=== PATIENT | female | born 1960 | race Caucasian/White ===

== ENCOUNTER 2020-04-09 16:13 | Inpatient (IN) | payer MEDICAID, OTHER ==
[~2020-04-09] VITALS: Ht 157.5 cm; Wt 86.8 kg
[2020-04-09 16:25] VITALS: BP_SYST 103
--- NOTE | 2020-04-09 16:25 | NUR ---
RECEIVED AND IN ROOM , PAOLO TO ASSUEM CARE . AAO, RESP UNLABORED, SKIN WARM AND DRY. WHILE AT HOME DEVELOPED, LIGHTHEADEDNESS, SOB, DIAPHORETIC/ VOMITING. UPON ARRIVAL SYPTOMS RESOLVED. COMMUNICATES CLEARLY IN FULL COMPLETE SENTECNES DENIES CP/SOB
[2020-04-09] MEDS ORDERED: DILTIAZEM HCL 25 MG/5 ML VIAL IVP ONE (16:45)
[2020-04-09] MEDS ORDERED: NACL 0.9% 1,000 ML IV ONE (16:45)
[2020-04-09] MEDS ORDERED: ASPIRIN 81 MG TAB.CHEW PO ONE (16:45)
[2020-04-09 17:02] LABS: BASOPHILS # (AUTO) 0.1 K/uL (0.0-0.2); BASOPHILS % (AUTO) 0.5 % (0.0-2.0); EOSINOPHILS # (AUTO) 0.1 K/uL (0.0-0.4); EOSINOPHILS % (AUTO) 0.5 % (0.0-4.0); HEMATOCRIT 42.1 % (36-48); HEMOGLOBIN 13.7 g/dL (12.0-16.0); LYMPHOCYTES # (AUTO) 1.3 K/uL (1.0-5.5); LYMPHOCYTES % (AUTO) 11.3 % (20.5-51.5); MEAN CORPUSCULAR HEMOGLOBIN 30 pg (27-31); MEAN CORPUSCULAR HGB CONC 33 % (32-36); MEAN CORPUSCULAR VOLUME 94 fL (79.0-98.0); MONOCYTES # (AUTO) 0.4 K/uL (0.0-1.0); MONOCYTES % (AUTO) 3.8 % (1.7-9.3); NEUTROPHILS # (AUTO) 9.7 K/uL (1.8-7.7); NEUTROPHILS % (AUTO) 83.9 % (40.0-70.0); PLATELET COUNT (AUTO) 208 K/uL (130-430); RED BLOOD CELL COUNT(AUTO) 4.49 MIL/uL (4.2-6.2); RED CELL DISTRIBUTION WIDTH 13.4 % (9.0-15.0); WHITE BLOOD COUNT (AUTO) 11.5 K/uL (4.8-10.8)
--- NOTE | 2020-04-09 17:04 | NUR ---
LABS , CXR, EKG COMPLETED. TOLERATING IV MEDICATIONS. NS INFUSION
[2020-04-09] MEDS ORDERED: DILTIAZEM HCL 25 MG/5 ML VIAL ONE (17:06)
[2020-04-09 17:07] LABS: CALCIUM 8.7 mg/dL (8.4-11.0); CREATININE 1.24 mg/dL (0.55-1.30); POTASSIUM 3.8 mmol/L (3.5-5.1)
--- NOTE | 2020-04-09 17:21 | NUR ---
RESPONDED TO ABDIFATAH, HR IS NSR @ 62
[2020-04-09 17:35] LABS: ALBUMIN 3.5 g/dL (3.4-4.8); FREE T4 (FREE THYROXINE) 0.6 ng/dL (0.6-1.6); THYROID STIMULATING HORMONE 2.96 uIu/mL (0.34-4.82); TOTAL BILIRUBIN 0.5 mg/dL (0.0-1.0)
--- NOTE | 2020-04-09 17:54 | NUR ---
REPEAK EKG SHOWING SR AT 62
[2020-04-09] MEDS ORDERED: HYDROcodone/ACETAMIN 5-325 MG TAB (NORCO/ VICODIN) PO PRN (18:45)
[2020-04-09] MEDS ORDERED: ACETAMINOPHEN 325 MG TABLET PO PRN (18:45)
[2020-04-09] MEDS ORDERED: ONDANSETRON HCL 4 MG/2 ML VIAL IVP PRN (18:45)
[2020-04-09] MEDS ORDERED: ATEN50TA PO (18:54)
[2020-04-09] MEDS ORDERED: SIMV20TA2 PO (18:54)
[2020-04-09] MEDS ORDERED: HYDR12.55 (18:54)
--- NOTE | 2020-04-09 18:54 | NUR ---
Patient will be admitted to care of MD. Admitted to TELE unit. Will go to room 102. Belongings list completed. Complete and up to date summary report printed. SBAR report to be given at bedside with opportunity for questions.
--- NOTE | 2020-04-09 19:05 | NUR ---
Admission Note Received patient from Er. Initial Plan of Care discussed-patient verbalized understanding. Oriented to room, call light, pain management and safety. Patient is ambulatory, and assisted to the restroom.
[2020-04-09 19:09] LABS: PHOSPHORUS 3.6 mg/dL (2.7-4.5)
[2020-04-09 19:10] VITALS: BP_SYST 126
[2020-04-09 19:20] LABS: PROTHROMBIN TIME 9.9 SECS (9.5-12.5)
--- NOTE | 2020-04-09 19:30 | NUR ---
OPENING NOTES received report from resource rn. pt resting in bed at this time. no signs of discomfort noted. no c/o pain. iv site patent, no signs of infiltration noted. bed at lowest position and locked. bed alarm is off, educated pt of importance of having it on, will encourage pt throughout shift. call light with pt, verbalizes and demonstrated back proper use of call light is assistance is needed. will continue to monitor.
[2020-04-09 20:00] VITALS: BP_SYST 126
--- NOTE | 2020-04-09 21:00 | NUR ---
ROUNDS pt resting in bed, no signs of discomfort noted. safety and fall precautions in place. will continue to monitor.
--- NOTE | 2020-04-09 21:05 | NUR ---
CONSULT: CONSULT CALLED FOR DR. ZAMORA I SPOKE WITH MARTINEInes SINGH REASON FOR CONSULT: ODESSA LLANOS REQUESTING CONSULT: DR. LOPEZ DOCTOR OF NURSE ANESTHESIA PHONE NUMBER: [phone]
--- NOTE | 2020-04-09 23:00 | NUR ---
ROUNDS pt resting in bed at this time. no signs of acute distress noted. safety and fall precautions in place. will continue to monitor.
[2020-04-09 23:36] LABS: BILIRUBIN,URINE NEGATIVE (NEGATIVE); BLOOD, URINE NEGATIVE (NEGATIVE); CLARITY/URINE CLEAR (CLEAR); COLOR,URINE YELLOW (YELLOW); GLUCOSE,URINE NEGATIVE (NEGATIVE); KETONES,URINE NEGATIVE (NEGATIVE); LEUKOCYTE ESTERASE ,URINE NEGATIVE (NEGATIVE); NITRITE, URINE NEGATIVE (NEGATIVE); PROTEIN URINE NEGATIVE (NEGATIVE); UROBILINOGEN,URINE 0.2 (0.2-1.0)
[2020-04-09 23:47] LABS: BARBITURATE, URINE NEGATIVE (NEG <=200); BENZODIAZEPINE, URINE NEGATIVE (NEG <=150); CANNABINOID, URINE NEGATIVE (NEG <=50); COCAINE, URINE NEGATIVE (NEG <=150); METHAMPHETAMINES SCREEN,URINE NEGATIVE (NEG <=500); OPIATE, URINE NEGATIVE (NEG <=100); PHENCYCLIDINE SCREEN,URINE NEGATIVE (NEG <=25); UR TRICYCLIC ANTIDEPRESSANTS NEGATIVE (NEG <=300); URINE AMPHETAMINE NEGATIVE (NEG <=500); URINE METHADONE NEGATIVE (NEG <=200); URINE OXYCODONE SCREEN NEGATIVE (NEG <=100); URINE PROPOXYPHENE SCREEN NEGATIVE (NEG <=300)
--- NOTE | 2020-04-09 23:55 | NUR ---
paged paged for Dr Eubanks, dialed . s/w Malini.
[2020-04-10] VITALS: BP_SYST 110
--- NOTE | 2020-04-10 01:00 | NUR ---
ROUNDS pt still resting in bed. no signs of discomfort noted. safety and fall precautions in place. will continue to monitor.
--- NOTE | 2020-04-10 03:00 | NUR ---
ROUNDS pt asleep in bed, no acute distress noted at this time. safety and fall precautions maintained. will continue to monitor.
--- NOTE | 2020-04-10 05:00 | NUR ---
ROUNDS pt is resting in bed at this time. no signs of discomfort noted. safety and fall precaution in place. will continue to monitor.
[2020-04-10] MEDS ORDERED: ENOXAPARIN SODIUM 100 MG/ML SYRINGE SUBCUT SCH (06:15)
[2020-04-10 06:33] LABS: BASOPHILS % (AUTO) 0.3 % (0.0-2.0); EOSINOPHILS # (AUTO) 0.1 K/uL (0.0-0.4); EOSINOPHILS % (AUTO) 1.1 % (0.0-4.0); HEMATOCRIT 37.7 % (36-48); HEMOGLOBIN 12.4 g/dL (12.0-16.0); LYMPHOCYTES # (AUTO) 2.4 K/uL (1.0-5.5); LYMPHOCYTES % (AUTO) 18.5 % (20.5-51.5); MEAN CORPUSCULAR HEMOGLOBIN 31 pg (27-31); MEAN CORPUSCULAR HGB CONC 33 % (32-36); MEAN CORPUSCULAR VOLUME 93 fL (79.0-98.0); MONOCYTES # (AUTO) 0.8 K/uL (0.0-1.0); MONOCYTES % (AUTO) 5.8 % (1.7-9.3); NEUTROPHILS # (AUTO) 9.8 K/uL (1.8-7.7); NEUTROPHILS % (AUTO) 74.3 % (40.0-70.0); PLATELET COUNT (AUTO) 183 K/uL (130-430); RED BLOOD CELL COUNT(AUTO) 4.04 MIL/uL (4.2-6.2); RED CELL DISTRIBUTION WIDTH 13.5 % (9.0-15.0); WHITE BLOOD COUNT (AUTO) 13.2 K/uL (4.8-10.8)
--- NOTE | 2020-04-10 06:43 | NUR ---
CLOSING NOTES pt is resting in bed at this time. no acute distress noted. no c/o pain. breathing is unlabored. iv site patent, no signs of infiltration and infection noted. bed at lowest position and locked. bed alarm is off, educated pt of importance of having it on, encouraged pt throughout shift. call light with pt, verbalized and demonstrated back proper use of call light if help is needed. all needs met throughout shift. will continue to monitor until report given to day shift rn.
[2020-04-10 08:00] VITALS: BP_SYST 116
[2020-04-10 08:29] LABS: CALCIUM 8.6 mg/dL (8.4-11.0); CREATININE 0.7 mg/dL (0.55-1.30); PHOSPHORUS 3.1 mg/dL (2.7-4.5); POTASSIUM 3.2 mmol/L (3.5-5.1)
--- NOTE | 2020-04-10 08:38 | NUR ---
Critical lab result: Got a phone call from Lab for Troponin = [phone]. A primary nurse,Lacey, made aware.
[2020-04-10] MEDS: DOCUSATE SODIUM 100 MG CAPSULE PO SCH (08:39)
[2020-04-10] MEDS: ATENOLOL 50 MG TABLET (TENORMIN) PO SCH (08:41)
[2020-04-10] MEDS ORDERED: METOPROLOL TARTRATE 25 MG TABLET PO SCH (09:00)
[2020-04-10] MEDS ORDERED: HYDROCHLOROTHIAZIDE 12.5 MG CAPSULE (HCTZ) PO SCH (09:00)
--- NOTE | 2020-04-10 09:39 | NUR ---
PATIENT IS IN BED RESTING. PATIENT DENIES PAIN AND SHORTNESS OF BREATH. NO SIGNS OF DISTRESS. DOCTOR AWARE OF PATIENTS TROPONIN LEVELS. AM MEDICATION GIVEN. PATIENT REFUSED COLACE. BED IN LOW POSITION. CALL LIGHT IN REACH. WILL CONTINUE TO MONITOR PATIENT.
[2020-04-10] MEDS ORDERED: POTASSIUM CHLORIDE 20 MEQ TAB.PRT.SR PO ONE (10:00)
[2020-04-10] MEDS ORDERED: DILTIAZEM HCL 120 MG CAP.SR.24H PO ONE (10:30)
[2020-04-10 12:37] VITALS: BP_SYST 110
--- NOTE | 2020-04-10 14:05 | NUR ---
DURING ASSESSMENT PATIENT REPORTED LOWER ABDOMINAL PAIN. BLADDER SCAN COMPLETED. >176 ML ON LEFT SIDE. WILL MONITOR URINARY OUTPUT REMAINDER OF THE SHIFT.
[2020-04-10 17:08] VITALS: BP_SYST 100
--- NOTE | 2020-04-10 18:21 | NUR ---
PATIENT IS IN BED RESTING. PATIENT HAS ONLY EATEN VANILLA [employer]OGURT ALL DAY. DAUGHTER GAVE FOOD RECOMMENDATIONS. NO SIGNS OR SYMPTOMS OF PAIN, DISTRESS, OR SHORTNESS OF BREATH. BED IN LOW POSITION. CALL LIGHT IN REACH. WILL GIVE REPORT TO NIGHT NURSE. Addendum: 04/10/20 at 1823 by Pastor ssis architect NOTE NOT INTENDED FOR THIS PATIENT.
--- NOTE | 2020-04-10 18:25 | NUR ---
PATIENT IS ALERT AND ORIENTED X4. PATIENT IS IN BED RESTING. PATIENT DENIES PAIN, DISTRESS, AND SHORTNESS OF BREATH. CALL LIGHT IN REACH. BED IN LOW POSITION. WILL GIVE REPORT TO NIGHT NURSE.
--- NOTE | 2020-04-10 19:45 | NUR ---
A/A/O X4. AMBULATORY .DENIES ANY DISCOMFORT.DENIES CP.DENIES SOB.INSTRUCTED TO USE CALL LIGHT NEEDED;CALL LIGHT WITHIN REACH.
[2020-04-10 20:00] VITALS: BP_SYST 104
--- NOTE | 2020-04-10 20:00 | NUR ---
AFEBRILE.O2 SAT ON RA 96%. V/S STABLE. TELE SHOWED SR.
[2020-04-10] MEDS: APIXABAN 2.5 MG TABLET PO SCH (20:43)
[2020-04-10] MEDS ORDERED: SIMVASTATIN 20 MG TABLET PO SCH (21:00)
--- NOTE | 2020-04-10 21:00 | NUR ---
DUE MEDS ADM.
--- NOTE | 2020-04-10 22:00 | NUR ---
VOIDING FREELY TO THE BR. TELE SHOWED SR.
[2020-04-11] VITALS: BP_SYST 110
--- NOTE | 2020-04-11 | NUR ---
AFEBRILE.V/S STABLE.TELE SHOWED SR.
--- NOTE | 2020-04-11 02:00 | NUR ---
RESTING COMFORTABLY IN NO ACUTE DISTRESS.
--- NOTE | 2020-04-11 04:00 | NUR ---
ASLEEP IN NO ACUTE DISTRESS.TELE SHOWED SR.
[2020-04-11 06:29] LABS: CALCIUM 8.7 mg/dL (8.4-11.0); CREATININE 0.85 mg/dL (0.55-1.30); PHOSPHORUS 3.2 mg/dL (2.7-4.5); POTASSIUM 3.5 mmol/L (3.5-5.1)
[2020-04-11 06:39] LABS: BASOPHILS % (AUTO) 0.4 % (0.0-2.0); EOSINOPHILS # (AUTO) 0.2 K/uL (0.0-0.4); EOSINOPHILS % (AUTO) 2.4 % (0.0-4.0); HEMATOCRIT 40.3 % (36-48); HEMOGLOBIN 13.4 g/dL (12.0-16.0); LYMPHOCYTES # (AUTO) 2.6 K/uL (1.0-5.5); LYMPHOCYTES % (AUTO) 25.9 % (20.5-51.5); MEAN CORPUSCULAR HEMOGLOBIN 31 pg (27-31); MEAN CORPUSCULAR HGB CONC 33 % (32-36); MEAN CORPUSCULAR VOLUME 93 fL (79.0-98.0); MONOCYTES # (AUTO) 0.6 K/uL (0.0-1.0); MONOCYTES % (AUTO) 6.3 % (1.7-9.3); NEUTROPHILS # (AUTO) 6.4 K/uL (1.8-7.7); PLATELET COUNT (AUTO) 186 K/uL (130-430); RED BLOOD CELL COUNT(AUTO) 4.33 MIL/uL (4.2-6.2); RED CELL DISTRIBUTION WIDTH 13.3 % (9.0-15.0); WHITE BLOOD COUNT (AUTO) 9.9 K/uL (4.8-10.8)
--- NOTE | 2020-04-11 06:55 | NUR ---
ENDORSED RESTING COMFORTABLY.DENIES SOB OVER 12 HRS. SAFETY MAINTAINED.
[2020-04-11 08:00] VITALS: BP_SYST 122
[2020-04-11] MEDS: DOCUSATE SODIUM 100 MG CAPSULE PO SCH (08:41)
[2020-04-11] MEDS: ATENOLOL 50 MG TABLET (TENORMIN) PO SCH (08:42)
[2020-04-11] MEDS: APIXABAN 2.5 MG TABLET PO SCH (08:47)
[2020-04-11] MEDS ORDERED: DILT-4 PO (08:51)
[2020-04-11] MEDS ORDERED: APIX5TAB PO (08:51)
[2020-04-11] MEDS ORDERED: DILTIAZEM HCL 120 MG CAP.SR.24H PO SCH (09:00)
--- NOTE | 2020-04-11 09:45 | NUR ---
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
--- NOTE | 2020-04-11 10:45 | NUR ---
PATIENT IN BED RESTING. PATIENT DENIES PAIN AND SHORTNESS OF BREATH. NO SIGNS AND SYMPTOMS OF DISTRESS. SPOKE WITH PATIENTS FATHER ABOUT PATIENTS CARE AND DISCHARGE STATUS. BED IN LOW POSITION. CALL LIGHT IN REACH. WILL CONTINUE TO MONITOR PATIENT.
[2020-04-11 10:58] VITALS: BP_SYST 122
--- NOTE | 2020-04-11 11:47 | NUR ---
D/C Patient Patient given medication reconciliation form and D/C instructions. Exit Care provided. Patient verbalized understanding. MD discussed with patient the results and treatment provided. Ambulatory with steady gait for discharge to home. Patient in stable condition, ID band removed. IV catheter removed, intact and dressing applied, no active bleeding. Rx of given. 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 Patient educated on pain management. All belongings sent with patient.
--- NOTE | 2020-04-13 14:25 | NUR ---
Discharge Follow Up Phone Call Phoned patient, . Patient stated she was doing well. She filled her prescriptions and has made a follow up appointment with her PCP, Dr Romero Smith, on 04/15/20. She is concerned that she may not get her medical records emailed to her in time for her appointment. Asked her to call me tomorrow afternoon if she has not received the medical record yet. Provided Social Service contact information. Addendum: 04/14/20 at 1526 by Beverly Chung LCSW Patient called. She did not receive the medical record. Phoned Medical Records. They will expedite and email records by the end of the day. Phoned patient. She is still concerned that she will not have the record before her appointment. Requested they be faxed. Phoned Dr Smith's office and obtained secure fax number, p [phone] p [phone]. Faxed partial record.
== END 2020-04-11 13:12 | disposition home or self-care (01) | DRG 201 ==
LOC: SED 16:13 → STU 18:54
PROVIDERS: ADMIT Family Medicine; ATTEND Family Medicine
DX: I48.0 Paroxysmal atrial fibrillation (principal); I21.A1 Myocardial infarction type 2; E87.2 Acidosis; E87.1 Hypo-osmolality and hyponatremia; E66.9 Obesity, unspecified; Z68.35 Body mass index [BMI] 35.0-35.9, adult; E87.6 Hypokalemia; E78.5 Hyperlipidemia, unspecified; I10 Essential (primary) hypertension; J30.2 Other seasonal allergic rhinitis; T50.2X5A Adverse effect of carbonic-anhydrase inhibitors, benzothiadiazides and other diuretics, initial encounter; Y92.89 Other specified places as the place of occurrence of the external cause; Z79.899 Other long term (current) drug therapy; Z82.0 Family history of epilepsy and other diseases of the nervous system
CPT/HCPCS: 36415; 71045; 80048; 80053; 80061; 80307; 81003; 82150-TC; 82550-TC; 83036; 83605; 83690-TC; 83735-TC; 83880; 84100-TC; 84439; 84443-TC; 84484; 85025; 85610-TC; 85730-TC; 93005; 93306; 96361; 96374; 99285; G0378; J1650; J3490